=== PATIENT | female | born 1965 | race African-American/Black ===

== ENCOUNTER 2017-06-20 07:48 | Emergency (ER) | payer SELFPAY ==
[2017-06-20 08:28] LABS: BASOPHILS 0.5 % (0-2); EOSINOPHILS 0 % (0-7); HEMATOCRIT 40.8 % (36.0-48.0); HEMOGLOBIN 12.8 g/dL (12-16); IMMATURE GRANULOCYTES 0.3 % (0-5); MCH 27.5 pg (26.0-34.0); MCHC 31.4 g/dL (31.0-37.0); MCV 87.6 fL (80.0-100.0); MEAN PLATELET VOLUME 9.2 fL (7.4-10.4); NEUTROPHILS 58.2 % (40-80); PLATELET COUNT 388 10x3/uL (130-400); RBC 4.66 10x6/uL (4.00-5.40); RDW 18.7 % (11.5-14.5)
[2017-06-20 08:48] LABS: ALBUMIN 3.5 g/dL (3.4-5.0); BILIRUBIN - TOTAL 0.22 mg/dL (0.2-1.3); CALCIUM 9.1 mg/dL (8.5-10.1); CARBON DIOXIDE 26.7 mmol/L (21.0-32.0); CREATININE - SERUM 0.9 mg/dL (0.6-1.3); POTASSIUM - SERUM 3.7 mmol/L (3.5-5.1); PROTEIN - SERUM 8.1 g/dL (6.4-8.2)
[2017-06-20 10:02] LABS: HCG URINE NEGATIVE (NEGATIVE)
[2017-06-20 10:06] LABS: APPEARANCE CLEAR (CLEAR); BILIRUBIN NEGATIVE (NEGATIVE); COLOR YELLOW (YELLOW); GLUCOSE NEGATIVE (NEGATIVE); KETONE NEGATIVE (NEGATIVE); NITRITE NEGATIVE (NEGATIVE); PROTEIN 3+ mg/dL (NEGATIVE); SPECIFIC GRAVITY 1.015 (1.005-1.020); UROBILINOGEN NORMAL (NORMAL)
[2017-06-20 10:11] LABS: RED CELLS - URINE 0-5 /hpf (0-5); WHITE CELLS - URINE 0-5 /hpf (0-5)
[2017-06-20 10:12] LABS: BACTERIA FEW /hpf (NONE SEEN); EPITHELIAL CELLS OCC /hpf (0-5)
[2017-06-20 10:14] LABS: HYALINE CAST RARE /lpf (NONE SEEN); MUCUS >1+ /lpf (NONE SEEN)
[2017-06-26 14:06] VITALS: BMI 32.9
== END 2017-06-20 12:07 | disposition home or self-care (01) ==
LOC: D.ER 07:48
PROVIDERS: Family Medicine
DX: K65.4 Sclerosing mesenteritis (principal); E27.9 Disorder of adrenal gland, unspecified

== ENCOUNTER 2017-06-21 17:53 | Emergency (ER) | payer SELFPAY ==
--- NOTE | ~2017-06-21 | CN ---
PATIENT NAME:PRITI LINDA MEDICAL RECORD: [id number] : 69 LOCATION:.ER ADMIT DATE: ACCOUNT: [id number] CONSULTING PHYSICIAN: SONJA STRICKLAND MD REFERRING PHYSICIAN: DANIELLE MATTHEWS MD DATE OF CONSULTATION: 06/21/2017 CHIEF COMPLAINT: Pain. HISTORY OF PRESENT ILLNESS: The patient is having epigastric pain. Nausea, vomiting, and bloating. I have personally reviewed the CT images. She has a swirl sign as well as some "dirty mesenteric fat." This is entirely consistent with a mesenteric panniculitis. The etiologies for mesenteric panniculitis can include, but are not limited to, an infectious diseases, rheumatologic diseases such as autoimmune problems, it can represent paraneoplastic syndrome; trauma, which the patient denies; or idiopathic reasons. It pretty rare condition. 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 Surgery is rarely indicated. The patient does have some lymph nodes in the mesentery, some greater than 1 cm in size. The treatment is controversial. It usually include steroids. It can include other medication as well such as azathioprine, colchicine, and tamoxifen. Palpation aggravates. Nothing alleviates. Symptoms are constant and mild to moderate in severity. This is a consultation note addendum. For the typed portion of the consult note, please see the chart. This would include the past medical and surgical history, current medications, allergies, social history as well as family history. REVIEW OF SYSTEMS: As described above. No fever, no chills, no significant recent weight loss. No cough. The review of systems is negative other than as is described above. PHYSICAL EXAMINATION: GENERAL: The patient does not appear acutely ill. She does not appear chronically ill. The entire physical examination was performed in the presence of a female nurse. VITAL SIGNS: Reviewed. EARS: External ears appear normal. EYES: Extraocular movements are intact. NECK: Trachea is midline. CHEST: No intercostal retractions. PULMONARY: Nonlabored, no stridor. ABDOMEN: Tenderness in the epigastrium. I note no mass. There is no peritonitis to percussion. EXTREMITIES: No peripheral cyanosis. INTEGUMENT: No rash, no ulcerations. PSYCHIATRIC: Normal affect. NEUROLOGIC: Nonfocal, no lethargy. The patient answers questions appropriately, moves all extremities well. BACK: No thoracic kyphosis. LYMPHATIC: No lymphangitic streaking of the exposed extremities. IMPRESSION: Mesentery panniculitis. PLAN: ID workup. Oncology workup. Rheumatology consultation. Once the CONSULT REPORT [id number] PRITI LINDA rheumatology consultation has started, I would like to start the patient on steroids. I do not want to start the patient on steroids prior to the rheumatology consultation as this could lead to a false negative result. TRANSINT:[id number] Voice Confirmation ID: [id number] DOCUMENT ID: [id number] SONJA STRICKLAND MD at 0938 CC: [id number] DICTATION DATE: 06/26/17 1057 [employer]ER: 06/26/17 1447 DEP ER 06/21/[address] [address]
[2017-06-21 20:12] LABS: BASOPHILS 0.3 % (0-2); EOSINOPHILS 0 % (0-7); HEMATOCRIT 41.8 % (36.0-48.0); HEMOGLOBIN 13.3 g/dL (12-16); IMMATURE GRANULOCYTES 0.3 % (0-5); LYMPHOCYTES 29.1 % (15-50); MCH 27.7 pg (26.0-34.0); MCHC 31.8 g/dL (31.0-37.0); MCV 87.1 fL (80.0-100.0); MEAN PLATELET VOLUME 9.4 fL (7.4-10.4); MONOCYTES 9.1 % (2-11); NEUTROPHILS 61.2 % (40-80); PLATELET COUNT 388 10x3/uL (130-400); RDW 18.4 % (11.5-14.5); WBC 3.9 10x3/uL (4.8-10.8)
[2017-06-21 20:28] LABS: ALBUMIN 3.7 g/dL (3.4-5.0); ANION GAP 14.8 mmol/L (8-16); BILIRUBIN - TOTAL 0.4 mg/dL (0.2-1.3); CALCIUM 8.9 mg/dL (8.5-10.1); CARBON DIOXIDE 26.5 mmol/L (21.0-32.0); CREATININE - SERUM 1.1 mg/dL (0.6-1.3); POTASSIUM - SERUM 3.3 mmol/L (3.5-5.1); PROTEIN - SERUM 8.3 g/dL (6.4-8.2)
[2017-06-26 14:06] VITALS: BMI 32.9
== END 2017-06-21 23:47 | disposition home or self-care (01) ==
LOC: D.ER 17:53
PROVIDERS: Emergency Medicine
DX: R10.13 Epigastric pain (principal); E87.6 Hypokalemia; K29.00 Acute gastritis without bleeding

== ENCOUNTER 2017-06-23 01:51 | Inpatient (IN) | payer SELFPAY ==
[~2017-06-23] VITALS: Ht 157.5 cm; Wt 81.6 kg
--- NOTE | ~2017-06-23 | PN ---
PATIENT:PRITI LINDA MEDICAL RECORD: [id number] LOCATION:[facility] ADMISSION DATE: 06/24/17 PROGRESS NOTE DATE OF SERVICE: 06/27/2017 CHIEF COMPLAINT: Better. The patient is having less nausea. No vomiting. Less abdominal pain. It does not appear that a rheumatologic consultation is forthcoming. I have discussed this with Dr. Cast. He is going to order some rheumatology markers and hopefully we can start the patient on steroids. Nothing aggravates. Nothing alleviates. She is neutropenic. This is a progress note addendum. For the typed portion of the progress note, please see the chart. This would include the past medical and surgical history, current medications, allergies, social history as well as family history. REVIEW OF SYSTEMS: No fever, no chills, no tachycardia. Less abdominal pain. The review of systems is negative other than as is described above. PHYSICAL EXAMINATION: GENERAL: The patient does not appear acutely ill. She does not appear chronically ill. The entire physical examination was performed in the presence of a female nurse. VITAL SIGNS: Reviewed. EARS: External ears appear normal. EYES: Extraocular movements are intact. NECK: Trachea is midline. CHEST: No intercostal retractions. PULMONARY: Nonlabored, no stridor. ABDOMEN: No peritonitis with movement. EXTREMITIES: No peripheral cyanosis. INTEGUMENT: No rash, no ulcerations. PSYCHIATRIC: Normal affect. NEUROLOGIC: Nonfocal, no lethargy. BACK: No thoracic kyphosis. LYMPHATIC: No lymphangitic streaking of the exposed extremities. IMPRESSION: Mesenteric panniculitis. PLAN: As described above. TRANSINT:[id number] Voice Confirmation ID: [id number] DOCUMENT ID: [id number] PROGRESS NOTE [id number] RPITI LINDA ROBERT MD at 0938 CC: [id number] DICTATION DATE: 06/27/17 1017 ROTARY DRILLER HELPER: 06/27/17 1633 ADM IN [address] [id number] [place] [address]
[2017-06-23 02:15] LABS: BASOPHILS 0.8 % (0-2); EOSINOPHILS 0.4 % (0-7); HEMATOCRIT 42.4 % (36.0-48.0); HEMOGLOBIN 13.1 g/dL (12-16); LYMPHOCYTES 49.6 % (15-50); MCH 27.2 pg (26.0-34.0); MCHC 30.9 g/dL (31.0-37.0); NEUTROPHILS 36.2 % (40-80); PLATELET COUNT 344 10x3/uL (130-400); RBC 4.82 10x6/uL (4.00-5.40); RDW 18.2 % (11.5-14.5); WBC 2.6 10x3/uL (4.8-10.8)
[2017-06-23 02:29] LABS: ALBUMIN 3.4 g/dL (3.4-5.0); BILIRUBIN - TOTAL 0.52 mg/dL (0.2-1.3); CALCIUM 8.9 mg/dL (8.5-10.1); CARBON DIOXIDE 27.6 mmol/L (21.0-32.0); CREATININE - SERUM 0.9 mg/dL (0.6-1.3); PROTEIN - SERUM 7.8 g/dL (6.4-8.2)
[2017-06-23 02:31] LABS: ANION GAP 9.3 mmol/L (8-16); POTASSIUM - SERUM 3.9 mmol/L (3.5-5.1)
[2017-06-23 02:58] LABS: APPEARANCE CLOUDY (CLEAR); COLOR RED (YELLOW)
[2017-06-23 02:59] LABS: BACTERIA NONE SEEN /hpf (NONE SEEN); BILIRUBIN NEGATIVE (NEGATIVE); EPITHELIAL CELLS RARE /hpf (0-5); GLUCOSE NEGATIVE (NEGATIVE); KETONE SMALL mg/dL (NEGATIVE); NITRITE NEGATIVE (NEGATIVE); PROTEIN 1+ mg/dL (NEGATIVE); RED CELLS - URINE >50 /hpf (0-5); UROBILINOGEN NORMAL (NORMAL); WHITE CELLS - URINE RARE /hpf (0-5)
[2017-06-23 03:04] LABS: UDS - AMPHET NEGATIVE QUAL (NEGATIVE); UDS - BARB NEGATIVE QUAL (NEGATIVE); UDS - BENZO NEGATIVE QUAL (NEGATIVE); UDS - COCAINE NEGATIVE QUAL (NEGATIVE); UDS - OPIATE POSITIVE QUAL (NEGATIVE); UDS - PCP NEGATIVE QUAL (NEGATIVE); UDS - THC POSITIVE QUAL (NEGATIVE)
[2017-06-23 13:25] VITALS: BP 152/92; BMI 33.0
[2017-06-23 16:30] VITALS: BP 148/102
[2017-06-23 20:00] VITALS: BP 150/101
[2017-06-24] VITALS: BP 153/87
[2017-06-24 04:00] VITALS: BP 153/91
[2017-06-24 04:56] LABS: BASOPHILS 0.4 % (0-2); EOSINOPHILS 0.7 % (0-7); HEMATOCRIT 38.4 % (36.0-48.0); HEMOGLOBIN 11.9 g/dL (12-16); LYMPHOCYTES 64.8 % (15-50); MCH 27.1 pg (26.0-34.0); MCV 87.5 fL (80.0-100.0); MEAN PLATELET VOLUME 9.5 fL (7.4-10.4); MONOCYTES 13.9 % (2-11); NEUTROPHILS 20.2 % (40-80); PLATELET COUNT 324 10x3/uL (130-400); RBC 4.39 10x6/uL (4.00-5.40); RDW 18.3 % (11.5-14.5); WBC 2.7 10x3/uL (4.8-10.8)
[2017-06-24 05:11] LABS: ALKALINE PHOSPHATASE 75 U/L (46-116); ALT (SGPT) 80 U/L (10-68); CALC OSMOLALITY 273 mosm/kg (275-300); CALCIUM 8.6 mg/dL (8.5-10.1); CARBON DIOXIDE 27.2 mmol/L (21.0-32.0); CHLORIDE - SERUM 103 mmol/L (98-107); CREATININE - SERUM 0.8 mg/dL (0.6-1.3); GLUCOSE 94 mg/dL (74-106); POTASSIUM - SERUM 3.7 mmol/L (3.5-5.1); PROTEIN - SERUM 6.7 g/dL (6.4-8.2); SODIUM 138 mmol/L (136-145); UREA NITROGEN 6 mg/dL (7-18); eGFR NON AFRICAN AMERICAN 80 mL/min (90-120)
[2017-06-24 09:56] VITALS: BP 153/95
[2017-06-24 12:38] VITALS: BP 170/96
[2017-06-24 14:13] VITALS: BMI 32.9
[2017-06-24 16:45] VITALS: BP 146/95
[2017-06-24 20:00] VITALS: BP 178/108
[2017-06-25] VITALS: BP 142/80
[2017-06-25 04:00] VITALS: BP 112/99
[2017-06-25 06:20] LABS: BASOPHILS 0.3 % (0-2); EOSINOPHILS 0.3 % (0-7); HEMATOCRIT 39.9 % (36.0-48.0); HEMOGLOBIN 12.7 g/dL (12-16); IMMATURE GRANULOCYTES 0.5 % (0-5); MCH 27.3 pg (26.0-34.0); MCHC 31.8 g/dL (31.0-37.0); MCV 85.6 fL (80.0-100.0); MEAN PLATELET VOLUME 9.9 fL (7.4-10.4); NEUTROPHILS 44.9 % (40-80); PLATELET COUNT 358 10x3/uL (130-400); RBC 4.66 10x6/uL (4.00-5.40); RDW 18.2 % (11.5-14.5)
[2017-06-25 06:23] LABS: WBC 3.7 10x3/uL (4.8-10.8)
[2017-06-25 06:54] LABS: ALBUMIN 3.2 g/dL (3.4-5.0); ALKALINE PHOSPHATASE 81 U/L (46-116); ALT (SGPT) 88 U/L (10-68); BILIRUBIN - TOTAL 0.39 mg/dL (0.2-1.3); CALC OSMOLALITY 270 mosm/kg (275-300); CARBON DIOXIDE 23.8 mmol/L (21.0-32.0); CHLORIDE - SERUM 101 mmol/L (98-107); GLUCOSE 106 mg/dL (74-106); SODIUM 137 mmol/L (136-145); UREA NITROGEN 5 mg/dL (7-18); eGFR NON AFRICAN AMERICAN > 90 mL/min (90-120)
[2017-06-25 07:05] LABS: CREATININE - SERUM 0.5 mg/dL (0.6-1.3); POTASSIUM - SERUM 4.9 mmol/L (3.5-5.1)
[2017-06-25 08:44] VITALS: BP 100/47; BP 146/81
[2017-06-25 16:36] VITALS: BP 153/91
[2017-06-25 20:00] VITALS: BP 175/102
[2017-06-26] VITALS: BP 155/96
[2017-06-26 06:00] VITALS: BP 145/99
[2017-06-26 08:04] VITALS: BP 141/86
[2017-06-26 11:56] LABS: BASOPHILS 0.3 % (0-2); EOSINOPHILS 0.9 % (0-7); HEMATOCRIT 40.7 % (36.0-48.0); IMMATURE GRANULOCYTES 0.3 % (0-5); LYMPHOCYTES 37.6 % (15-50); MCH 27.8 pg (26.0-34.0); MCHC 31.9 g/dL (31.0-37.0); MCV 87.2 fL (80.0-100.0); MEAN PLATELET VOLUME 9.3 fL (7.4-10.4); NEUTROPHILS 46.9 % (40-80); PLATELET COUNT 356 10x3/uL (130-400); RBC 4.67 10x6/uL (4.00-5.40); RDW 18.2 % (11.5-14.5); WBC 3.5 10x3/uL (4.8-10.8)
[2017-06-26 12:07] VITALS: BP 161/94
[2017-06-26 12:15] LABS: MONO NEGATIVE (NEGATIVE)
[2017-06-26 12:23] LABS: ALBUMIN 3.3 g/dL (3.4-5.0); ALKALINE PHOSPHATASE 77 U/L (46-116); ALT (SGPT) 83 U/L (10-68); BILIRUBIN - TOTAL 0.37 mg/dL (0.2-1.3); CALC OSMOLALITY 270 mosm/kg (275-300); CALCIUM 8.6 mg/dL (8.5-10.1); CARBON DIOXIDE 26.4 mmol/L (21.0-32.0); CHLORIDE - SERUM 101 mmol/L (98-107); GLUCOSE 111 mg/dL (74-106); PROTEIN - SERUM 6.9 g/dL (6.4-8.2); SODIUM 136 mmol/L (136-145); UREA NITROGEN 6 mg/dL (7-18)
[2017-06-26 12:33] LABS: CREATININE - SERUM 0.7 mg/dL (0.6-1.3); POTASSIUM - SERUM 4.1 mmol/L (3.5-5.1); eGFR NON AFRICAN AMERICAN > 90 mL/min (90-120)
[2017-06-26 12:38] LABS: C-REACTIVE PROTEIN < 0.2 mg/dL (0.0-0.9)
[2017-06-26 13:06] LABS: ERYTHROCYTE SEDIMENTATION RATE 10 mm/hr (0-30)
[2017-06-26 14:06] VITALS: Ht 157.5 cm; Wt 81.6 kg
[2017-06-26 22:05] VITALS: BP 152/91
[2017-06-27 01:44] VITALS: BP 156/99
[2017-06-27 04:00] VITALS: BP 143/84
[2017-06-27 04:39] LABS: INR 1.1 (0.85-1.17); PROTIME 13.8 SECONDS (11.6-15.0)
[2017-06-27 04:40] LABS: BASOPHILS 0.3 % (0-2); EOSINOPHILS 1.8 % (0-7); HEMATOCRIT 39.8 % (36.0-48.0); HEMOGLOBIN 12.5 g/dL (12-16); LYMPHOCYTES 44.6 % (15-50); MCH 27.2 pg (26.0-34.0); MCHC 31.4 g/dL (31.0-37.0); MCV 86.7 fL (80.0-100.0); MEAN PLATELET VOLUME 9.6 fL (7.4-10.4); MONOCYTES 14.4 % (2-11); NEUTROPHILS 38.9 % (40-80); PLATELET COUNT 377 10x3/uL (130-400); RBC 4.59 10x6/uL (4.00-5.40); RDW 18.2 % (11.5-14.5); WBC 3.3 10x3/uL (4.8-10.8)
[2017-06-27 04:51] LABS: ALKALINE PHOSPHATASE 68 U/L (46-116); ALT (SGPT) 75 U/L (10-68); BILIRUBIN - TOTAL 0.37 mg/dL (0.2-1.3); CALC OSMOLALITY 269 mosm/kg (275-300); CALCIUM 8.8 mg/dL (8.5-10.1); CARBON DIOXIDE 26.4 mmol/L (21.0-32.0); CHLORIDE - SERUM 101 mmol/L (98-107); CREATININE - SERUM 0.8 mg/dL (0.6-1.3); GLUCOSE 102 mg/dL (74-106); POTASSIUM - SERUM 3.9 mmol/L (3.5-5.1); PROTEIN - SERUM 6.8 g/dL (6.4-8.2); SODIUM 136 mmol/L (136-145); UREA NITROGEN 6 mg/dL (7-18); eGFR NON AFRICAN AMERICAN 80 mL/min (90-120)
[2017-06-27 07:26] LABS: RAPID PLASMA REAGIN Non Reactive (Non Reactive)
[2017-06-27 08:35] VITALS: BP 167/102
[2017-06-27 10:16] LABS: ANA REFLEX - DIRECT Negative (Negative)
[2017-06-27 12:13] LABS: HEPATITIS C ANTIBODY 0.2 (0.0-0.9)
[2017-06-27 12:30] VITALS: BP 161/94
[2017-06-27 16:45] VITALS: BP 170/117
[2017-06-27 18:09] LABS: CYTOMEGALOVIRUS AB IGG >10.00 U/mL (0.00-0.59); EBV - EARLY ANTIGEN AB IGG <9.0 U/mL (0.0-8.9); EBV VIRAL CAPSID AB IGG >600.0 U/mL (0.0-17.9); EBV VIRAL CAPSID AB IGM <36.0 U/mL (0.0-35.9)
[2017-06-27 20:08] LABS: EBV - EARLY ANTIGEN AB IGG 11.8 U/mL (0.0-8.9); EBV VIRAL CAPSID AB IGG >600.0 U/mL (0.0-17.9); EBV VIRAL CAPSID AB IGM <36.0 U/mL (0.0-35.9)
[2017-06-27 22:07] VITALS: BP 167/90
[2017-06-28 02:03] VITALS: BP 138/92
[2017-06-28 04:56] LABS: HEMATOCRIT 38.8 % (36.0-48.0); HEMOGLOBIN 12.5 g/dL (12-16); LYMPHOCYTES 45.3 % (15-50); MCH 27.7 pg (26.0-34.0); MCHC 32.2 g/dL (31.0-37.0); MEAN PLATELET VOLUME 9.2 fL (7.4-10.4); NEUTROPHILS 41.9 % (40-80); PLATELET COUNT 348 10x3/uL (130-400); RBC 4.51 10x6/uL (4.00-5.40); RDW 18.3 % (11.5-14.5); WBC 3.5 10x3/uL (4.8-10.8)
[2017-06-28 05:14] LABS: CA 19-9 1 U/mL (0-35); CEA 1.6 ng/mL (0.0-4.7)
[2017-06-28 05:15] LABS: ALBUMIN 3.2 g/dL (3.4-5.0); ALKALINE PHOSPHATASE 67 U/L (46-116); ALT (SGPT) 65 U/L (10-68); BILIRUBIN - TOTAL 0.33 mg/dL (0.2-1.3); CALC OSMOLALITY 272 mosm/kg (275-300); CALCIUM 8.9 mg/dL (8.5-10.1); CARBON DIOXIDE 27.7 mmol/L (21.0-32.0); CHLORIDE - SERUM 103 mmol/L (98-107); CREATININE - SERUM 0.7 mg/dL (0.6-1.3); GLUCOSE 97 mg/dL (74-106); POTASSIUM - SERUM 3.9 mmol/L (3.5-5.1); PROTEIN - SERUM 6.8 g/dL (6.4-8.2); SODIUM 138 mmol/L (136-145); UREA NITROGEN 5 mg/dL (7-18); eGFR NON AFRICAN AMERICAN > 90 mL/min (90-120)
[2017-06-28 05:50] VITALS: BP 144/78
[2017-06-28 06:12] LABS: BETA-2 MICROGLOBULIN 1.5 mg/L (0.6-2.4)
[2017-06-28 08:04] VITALS: BP 145/91
[2017-06-28 15:45] VITALS: BP 141/94
[2017-06-28 20:00] VITALS: BP 145/84
[2017-06-29] VITALS: BP 120/79
[2017-06-29 04:00] VITALS: BP 118/77
[2017-06-29 04:22] LABS: BASOPHILS 0.6 % (0-2); EOSINOPHILS 1.5 % (0-7); HEMOGLOBIN 12.9 g/dL (12-16); IMMATURE GRANULOCYTES 0.3 % (0-5); LYMPHOCYTES 40.1 % (15-50); MCH 27.5 pg (26.0-34.0); MCHC 31.5 g/dL (31.0-37.0); MCV 87.4 fL (80.0-100.0); MEAN PLATELET VOLUME 9.7 fL (7.4-10.4); NEUTROPHILS 38.5 % (40-80); PLATELET COUNT 362 10x3/uL (130-400); RBC 4.69 10x6/uL (4.00-5.40); RDW 18.5 % (11.5-14.5); WBC 3.4 10x3/uL (4.8-10.8)
[2017-06-29 04:43] LABS: ALBUMIN 3.2 g/dL (3.4-5.0); ALKALINE PHOSPHATASE 69 U/L (46-116); ALT (SGPT) 60 U/L (10-68); BILIRUBIN - TOTAL 0.26 mg/dL (0.2-1.3); CALC OSMOLALITY 277 mosm/kg (275-300); CALCIUM 8.9 mg/dL (8.5-10.1); CHLORIDE - SERUM 105 mmol/L (98-107); CREATININE - SERUM 0.8 mg/dL (0.6-1.3); GLUCOSE 100 mg/dL (74-106); POTASSIUM - SERUM 3.5 mmol/L (3.5-5.1); PROTEIN - SERUM 6.9 g/dL (6.4-8.2); SODIUM 141 mmol/L (136-145); UREA NITROGEN 5 mg/dL (7-18); eGFR NON AFRICAN AMERICAN 80 mL/min (90-120)
[2017-06-29 07:48] VITALS: BP 131/75
[2017-06-29] MEDS ORDERED: REGLAN10 MG PO (12:07)
[2017-06-29] MEDS ORDERED: MIRALAX17 GM PO (12:07)
[2017-06-29] MEDS ORDERED: CARAFATE1 G PO (12:07)
[2017-06-29] MEDS ORDERED: PEPCID40 MG PO (12:08)
[2017-06-29] MEDS ORDERED: PROTONIX40 MG PO (12:08)
[2017-06-29 12:19] VITALS: BP 103/82
[2017-06-30 15:23] LABS: EHRLICHIA CHAFF IGG Negative (Neg:<1:64); EHRLICHIA CHAFF IGM Negative (Neg:<1:20); HGE IGG TITER Negative (Neg:<1:64); HGE IGM TITER Negative (Neg:<1:20)
== END 2017-06-29 13:58 | disposition home or self-care (01) | DRG 393 ==
LOC: D.ER 01:51 → D.MS 12:45 → OBSVTIME 12:45 → D.MS 12:45
PROVIDERS: Emergency Medicine; Family Medicine; Internal Medicine Gastroenterology; Internal Medicine Hematology & Oncology; Internal Medicine Nephrology; Student in an Organized Health Care Education/Training Program
PROC: 0DB68ZX Excision of Stomach, Via Natural or Artificial Opening Endoscopic, Diagnostic (ICD-10-PCS; 2017-06-28)
PROC: 0DB58ZX Excision of Esophagus, Via Natural or Artificial Opening Endoscopic, Diagnostic (ICD-10-PCS; 2017-06-28)
PROC: 0DB98ZX Excision of Duodenum, Via Natural or Artificial Opening Endoscopic, Diagnostic (ICD-10-PCS; principal; 2017-06-28 10:00)
DX: K65.4 Sclerosing mesenteritis (principal); K25.4 Chronic or unspecified gastric ulcer with hemorrhage; K22.10 Ulcer of esophagus without bleeding; R74.0 Nonspecific elevation of levels of transaminase and lactic acid dehydrogenase [LDH]; D72.819 Decreased white blood cell count, unspecified; D70.9 Neutropenia, unspecified; K29.80 Duodenitis without bleeding; K26.9 Duodenal ulcer, unspecified as acute or chronic, without hemorrhage or perforation

== ENCOUNTER 2020-01-07 10:23 | Emergency (ER) | payer SELFPAY ==
[~2020-01-07] VITALS: Ht 157.5 cm; Wt 90.0 kg
[~2020-01-07 10:23] MED LIST: CARAFATE1 G PO; MIRALAX17 GM PO; PEPCID40 MG PO; PROTONIX40 MG PO; REGLAN10 MG PO
[2020-01-07 10:32] VITALS: Ht 157.5 cm; Wt 90.0 kg
[2020-01-07 11:05] LABS: BASOPHILS 0.4 % (0-2); HEMATOCRIT 43.1 % (36.0-48.0); HEMOGLOBIN 13.8 g/dL (12-16); IMMATURE GRANULOCYTES 0.6 % (0-5); LYMPHOCYTES 25.2 % (15-50); MCH 30.1 pg (26.0-34.0); MCV 94.1 fL (80.0-100.0); MEAN PLATELET VOLUME 9.2 fL (7.4-10.4); MONOCYTES 5.1 % (2-11); NEUTROPHILS 65.7 % (40-80); PLATELET COUNT 315 10x3/uL (130-400); RBC 4.58 10x6/uL (4.00-5.40); RDW 14.6 % (11.5-14.5); WBC 4.7 10x3/uL (4.8-10.8)
[2020-01-07 11:26] LABS: CALC OSMOLALITY 273 mosm/kg (275-300); CALCIUM 9.2 mg/dL (8.5-10.1); CHLORIDE - SERUM 103 mmol/L (98-107); CREATININE - SERUM 0.8 mg/dL (0.6-1.3); GLUCOSE 120 mg/dL (74-106); POTASSIUM - SERUM 4.1 mmol/L (3.5-5.1); SODIUM 137 mmol/L (136-145); UREA NITROGEN 11 mg/dL (7-18); eGFR NON AFRICAN AMERICAN 80 mL/min (90-120)
[2020-01-07 11:35] LABS: ALBUMIN 3.7 g/dL (3.4-5.0); ALKALINE PHOSPHATASE 78 U/L (30-120); ALT (SGPT) 32 U/L (10-68); AMYLASE - SERUM 155 U/L (25-115); BILIRUBIN - TOTAL 0.18 mg/dL (0.2-1.3); LIPASE 82 U/L (73-393); PROTEIN - SERUM 7.8 g/dL (6.4-8.2); TROPONIN-I < 0.017 ng/mL (0.000-0.060)
[2020-01-07 11:48] LABS: BILIRUBIN NEGATIVE (NEGATIVE); GLUCOSE NEGATIVE (NEGATIVE); KETONE NEGATIVE (NEGATIVE); NITRITE NEGATIVE (NEGATIVE); SPECIFIC GRAVITY 1.005 (1.005-1.020); UROBILINOGEN NORMAL (NORMAL)
[2020-01-07] MEDS ORDERED: CARAFATE1 G PO (13:19)
[2020-01-07] MEDS ORDERED: PEPCID40 MG PO (13:19)
[2020-01-07] MEDS ORDERED: PROTONIX40 MG PO (13:19)
[2020-01-07] MEDS ORDERED: LISINOPRIL-HCT1 EAC8 PO (13:39)
[2020-01-07 14:34] VITALS: BP 178/93
== END 2020-01-07 14:36 | disposition home or self-care (01) ==
LOC: D.ER 10:23
PROVIDERS: Family Medicine
DX: R10.9 Unspecified abdominal pain (principal); K29.70 Gastritis, unspecified, without bleeding; I10 Essential (primary) hypertension; K21.9 Gastro-esophageal reflux disease without esophagitis; R11.2 Nausea with vomiting, unspecified

== ENCOUNTER 2020-02-04 18:07 | Emergency (ER) | payer SELFPAY ==
[~2020-02-04] VITALS: Ht 157.5 cm; Wt 93.6 kg
[~2020-02-04 18:07] MED LIST changes: +LISINOPRIL-HCT1 EAC8 PO
[2020-02-04 18:25] VITALS: Ht 157.5 cm; Wt 93.6 kg
[2020-02-04 19:14] LABS: BASOPHILS 0.1 % (0-2); EOSINOPHILS 0 % (0-7); HEMATOCRIT 42.7 % (36.0-48.0); HEMOGLOBIN 14.4 g/dL (12-16); IMMATURE GRANULOCYTES 0.3 % (0-5); MCH 30.3 pg (26.0-34.0); MCHC 33.7 g/dL (31.0-37.0); MCV 89.9 fL (80.0-100.0); MEAN PLATELET VOLUME 9.7 fL (7.4-10.4); MONOCYTES 8.6 % (2-11); RBC 4.75 10x6/uL (4.00-5.40); RDW 14.2 % (11.5-14.5); WBC 7.9 10x3/uL (4.8-10.8)
[2020-02-04 19:16] LABS: PLATELET COUNT 412 10x3/uL (130-400)
[2020-02-04 19:18] LABS: BILIRUBIN NEGATIVE (NEGATIVE); KETONE SMALL mg/dL (NEGATIVE); NITRITE POSITIVE (NEGATIVE); UROBILINOGEN NORMAL (NORMAL)
[2020-02-04 19:19] LABS: AMORPHOUS SEDIMENT >1+ /lpf (NONE SEEN); BACTERIA MODERATE /hpf (NEGATIVE); EPITHELIAL CELLS 0-5 /hpf (0-5); RED CELLS - URINE 0-5 /hpf (0-5); WHITE CELLS - URINE 0-5 /hpf (NEGATIVE)
[2020-02-04 20:10] LABS: CALC OSMOLALITY 274 mosm/kg (275-300); CALCIUM 10.2 mg/dL (8.5-10.1); CARBON DIOXIDE 23.8 mmol/L (21.0-32.0); CHLORIDE - SERUM 98 mmol/L (98-107); GLUCOSE 136 mg/dL (74-106); POTASSIUM - SERUM 3.6 mmol/L (3.5-5.1); SODIUM 136 mmol/L (136-145); UREA NITROGEN 14 mg/dL (7-18); eGFR NON AFRICAN AMERICAN 61 mL/min (90-120)
[2020-02-04 20:18] LABS: ALBUMIN 4.4 g/dL (3.4-5.0); ALKALINE PHOSPHATASE 84 U/L (30-120); ALT (SGPT) 36 U/L (10-68); AMYLASE - SERUM 194 U/L (25-115); LIPASE 56 U/L (73-393); PROTEIN - SERUM 8.9 g/dL (6.4-8.2); TROPONIN-I < 0.017 ng/mL (0.000-0.060)
[2020-02-04] MEDS ORDERED: PROTONIX40 MG PO (21:35)
[2020-02-04 21:51] VITALS: BP 168/114
== END 2020-02-04 21:57 | disposition home or self-care (01) ==
LOC: D.ER 18:07
DX: R10.9 Unspecified abdominal pain (principal); K29.70 Gastritis, unspecified, without bleeding; R11.10 Vomiting, unspecified

== ENCOUNTER 2020-03-14 12:22 | Emergency (ER) | payer SELFPAY ==
[2020-03-14 12:31] VITALS: Ht 157.5 cm
[2020-03-14 12:59] LABS: BASOPHILS 0.2 % (0-2); EOSINOPHILS 0.8 % (0-7); HEMATOCRIT 42.9 % (36.0-48.0); HEMOGLOBIN 13.9 g/dL (12-16); IMMATURE GRANULOCYTES 0.6 % (0-5); MCH 30.3 pg (26.0-34.0); MCHC 32.4 g/dL (31.0-37.0); MCV 93.7 fL (80.0-100.0); MEAN PLATELET VOLUME 9.5 fL (7.4-10.4); MONOCYTES 5.3 % (2-11); NEUTROPHILS 73.1 % (40-80); PLATELET COUNT 332 10x3/uL (130-400); RBC 4.58 10x6/uL (4.00-5.40); RDW 14.2 % (11.5-14.5); WBC 5.1 10x3/uL (4.8-10.8)
[2020-03-14 13:14] LABS: CALC OSMOLALITY 274 mosm/kg (275-300); CALCIUM 9.4 mg/dL (8.5-10.1); CARBON DIOXIDE 26.8 mmol/L (21.0-32.0); CHLORIDE - SERUM 104 mmol/L (98-107); CREATININE - SERUM 0.8 mg/dL (0.6-1.3); GLUCOSE 103 mg/dL (74-106); POTASSIUM - SERUM 3.9 mmol/L (3.5-5.1); SODIUM 138 mmol/L (136-145); UREA NITROGEN 10 mg/dL (7-18); eGFR NON AFRICAN AMERICAN 79 mL/min (90-120)
[2020-03-14 13:19] LABS: ALBUMIN 3.8 g/dL (3.4-5.0); ALKALINE PHOSPHATASE 87 U/L (30-120); ALT (SGPT) 22 U/L (10-68); AMYLASE - SERUM 103 U/L (25-115); BILIRUBIN - TOTAL 0.24 mg/dL (0.2-1.3); LIPASE 60 U/L (73-393); PROTEIN - SERUM 7.7 g/dL (6.4-8.2)
[2020-03-14 15:35] LABS: BILIRUBIN NEGATIVE (NEGATIVE); KETONE NEGATIVE (NEGATIVE); NITRITE NEGATIVE (NEGATIVE); UROBILINOGEN NORMAL mg/dL (< 2)
[2020-03-14 15:36] LABS: HCG URINE NEGATIVE (NEGATIVE)
[2020-03-14] MEDS ORDERED: PHENERGAN25 M1 PO (17:52)
[2020-03-14] MEDS ORDERED: ULTRAM50 MG PO (17:52)
[2020-03-14 18:35] VITALS: BP 165/92
== END 2020-03-14 18:39 | disposition home or self-care (01) ==
LOC: D.ER 12:22
PROVIDERS: Family Medicine
DX: R10.9 Unspecified abdominal pain (principal); K82.9 Disease of gallbladder, unspecified

== ENCOUNTER 2020-09-17 08:48 | Emergency (ER) | payer BC ==
[~2020-09-17] VITALS: Ht 157.5 cm; Wt 84.5 kg
[~2020-09-17 08:48] MED LIST changes: +ACETAMINOPHEN500 M1 PO; +BACTRIM DS TAB1 EAC1 PO; +COLACE100 MG PO; +CYCLOBENZAPRINE10 MG PO; +HYDROCODON-ACE1 EAC7 PO; +IBUPROFEN800 MG PO; +LEVSIN/ANASP0.125 MG PO; +MACROBID100 MG PO; +MACRODANTIN100 MG PO; +PHENERGAN25 M1 PO; +ULTRAM50 MG PO; +VOLTAREN75 MG PO; +ZOFRAN ODT4 MG/UDTAB PO; +ZOFRAN4 MG PO
[2020-09-17 08:55] VITALS: Ht 157.5 cm; Wt 84.5 kg
[2020-09-17] MEDS ORDERED: LISINOPRIL-HCT1 EAC8 PO (09:00)
[2020-09-17] MEDS ORDERED: TRAZODONE HCL50 MG PO (09:01)
[2020-09-17] MEDS ORDERED: OXYBUTYNIN CHLOR5 MG PO (09:01)
[2020-09-17] MEDS ORDERED: FOLBEE PLUS TAB1 TAB PO (09:01)
[2020-09-17] MEDS ORDERED: CYMBALTA60 MG PO (09:02)
[2020-09-17] MEDS ORDERED: LEXAPRO10 MG PO (09:02)
[2020-09-17 09:17] LABS: BASOPHILS 0.4 % (0-2); EOSINOPHILS 1.5 % (0-7); HEMATOCRIT 40.3 % (36.0-48.0); IMMATURE GRANULOCYTES 0.2 % (0-5); LYMPHOCYTE ABS# 1.36 10x3/uL (1.18-3.74); LYMPHOCYTES 24.8 % (15-50); MCH 30.6 pg (26.0-34.0); MCHC 32.3 g/dL (31.0-37.0); MCV 94.8 fL (80.0-100.0); MEAN PLATELET VOLUME 9.4 fL (7.4-10.4); MONOCYTES 5.5 % (2-11); NEUTROPHIL ABS# 3.72 10x3/uL (1.56-6.13); NEUTROPHILS 67.6 % (40-80); PLATELET COUNT 392 10x3/uL (130-400); RBC 4.25 10x6/uL (4.00-5.40); RDW 14.6 % (11.5-14.5); WBC 5.5 10x3/uL (4.8-10.8)
[2020-09-17 09:25] LABS: CALC OSMOLALITY 275 mosm/kg (275-300); CALCIUM 9.1 mg/dL (8.5-10.1); CARBON DIOXIDE 25.8 mmol/L (21.0-32.0); CHLORIDE - SERUM 101 mmol/L (98-107); CREATININE - SERUM 0.9 mg/dL (0.6-1.3); GLUCOSE 112 mg/dL (74-106); POTASSIUM - SERUM 3.7 mmol/L (3.5-5.1); SODIUM 138 mmol/L (136-145); UREA NITROGEN 9 mg/dL (7-18); eGFR NON AFRICAN AMERICAN 69 mL/min (90-120)
[2020-09-17 09:28] LABS: BILIRUBIN NEGATIVE (NEGATIVE); KETONE NEGATIVE (NEGATIVE); NITRITE NEGATIVE (NEGATIVE); UROBILINOGEN NORMAL mg/dL (< 2)
[2020-09-17 09:38] LABS: UDS - AMPHET NEGATIVE QUAL (NEGATIVE); UDS - BARB NEGATIVE QUAL (NEGATIVE); UDS - BENZO NEGATIVE QUAL (NEGATIVE); UDS - COCAINE NEGATIVE QUAL (NEGATIVE); UDS - OPIATE NEGATIVE QUAL (NEGATIVE); UDS - PCP NEGATIVE QUAL (NEGATIVE); UDS - THC POSITIVE QUAL (NEGATIVE)
[2020-09-17 09:43] LABS: ALBUMIN 3.7 g/dL (3.4-5.0); ALKALINE PHOSPHATASE 98 U/L (30-120); ALT (SGPT) 62 U/L (10-68); AMYLASE - SERUM 159 U/L (25-115); BILIRUBIN - TOTAL 0.22 mg/dL (0.2-1.3); CKMB 0.8 U/L (0.0-3.6); CREATINE KINASE 128 UL (21-215); LIPASE 57 U/L (73-393); PROTEIN - SERUM 7.8 g/dL (6.4-8.2)
[2020-09-17 09:44] LABS: TROPONIN-I < 0.017 ng/mL (0.000-0.060)
[2020-09-17 10:34] VITALS: BP 156/98
== END 2020-09-17 10:35 | disposition home or self-care (01) ==
LOC: D.ER 08:48
PROVIDERS: Family Medicine
DX: R10.13 Epigastric pain (principal); G89.29 Other chronic pain; I10 Essential (primary) hypertension

== ENCOUNTER 2020-09-22 08:05 | Emergency (ER) | payer MEDICAID ==
[~2020-09-22] VITALS: Ht 157.5 cm; Wt 81.8 kg
[~2020-09-22 08:05] MED LIST changes: +CYMBALTA60 MG PO; +FOLBEE PLUS TAB1 TAB PO; +LEXAPRO10 MG PO; +OXYBUTYNIN CHLOR5 MG PO; +TRAZODONE HCL50 MG PO
[2020-09-22 08:08] VITALS: BP 168/99; Ht 157.5 cm; Wt 81.8 kg
[2020-09-22 08:55] LABS: BASOPHILS 0.4 % (0-2); EOSINOPHILS 8.4 % (0-7); HEMATOCRIT 40.3 % (36.0-48.0); HEMOGLOBIN 12.8 g/dL (12-16); IMMATURE GRANULOCYTES 0.2 % (0-5); LYMPHOCYTES 28.5 % (15-50); MCH 30.6 pg (26.0-34.0); MCHC 31.8 g/dL (31.0-37.0); MCV 96.4 fL (80.0-100.0); MEAN PLATELET VOLUME 9.5 fL (7.4-10.4); MONOCYTES 6.1 % (2-11); NEUTROPHIL ABS# 2.97 10x3/uL (1.56-6.13); NEUTROPHILS 56.4 % (40-80); PLATELET COUNT 371 10x3/uL (130-400); RBC 4.18 10x6/uL (4.00-5.40); RDW 14.5 % (11.5-14.5); WBC 5.3 10x3/uL (4.8-10.8)
[2020-09-22 08:57] LABS: ANION GAP 9.2 mmol/L (8-16); CALCIUM 8.8 mg/dL (8.5-10.1); CARBON DIOXIDE 28.7 mmol/L (21.0-32.0); CREATININE - SERUM 0.9 mg/dL (0.6-1.3); POTASSIUM - SERUM 3.9 mmol/L (3.5-5.1)
[2020-09-22 09:03] LABS: ALBUMIN 3.6 g/dL (3.4-5.0); BILIRUBIN - TOTAL 0.13 mg/dL (0.2-1.3); PROTEIN - SERUM 7.4 g/dL (6.4-8.2)
[2020-09-22 09:06] LABS: BILIRUBIN NEGATIVE (NEGATIVE); KETONE NEGATIVE (NEGATIVE); NITRITE NEGATIVE (NEGATIVE); UROBILINOGEN NORMAL mg/dL (< 2)
[2020-09-22] MEDS ORDERED: BENTYL 20 MG TA20 MG PO (09:27)
== END 2020-09-22 09:46 | disposition home or self-care (01) ==
LOC: D.ER 08:05
PROVIDERS: Emergency Medicine
DX: K58.9 Irritable bowel syndrome, unspecified (principal); I10 Essential (primary) hypertension; K21.9 Gastro-esophageal reflux disease without esophagitis; R10.84 Generalized abdominal pain

== ENCOUNTER 2020-09-24 07:57 | Emergency (ER) | payer MEDICAID ==
[~2020-09-24] VITALS: Ht 157.5 cm; Wt 84.5 kg
[~2020-09-24 07:57] MED LIST changes: +BENTYL 20 MG TA20 MG PO
[2020-09-24 08:01] VITALS: BP 171/113; Ht 157.5 cm; Wt 84.5 kg
[2020-09-24 08:27] LABS: ANION GAP 10.2 mmol/L (8-16); CARBON DIOXIDE 27.7 mmol/L (21.0-32.0); CREATININE - SERUM 0.9 mg/dL (0.6-1.3); POTASSIUM - SERUM 3.9 mmol/L (3.5-5.1)
[2020-09-24 08:32] LABS: ALBUMIN 3.5 g/dL (3.4-5.0); BILIRUBIN - TOTAL 0.13 mg/dL (0.2-1.3); PROTEIN - SERUM 7.3 g/dL (6.4-8.2)
[2020-09-24 08:35] LABS: BASOPHILS 0.8 % (0-2); EOSINOPHILS 4.1 % (0-7); HEMATOCRIT 38.8 % (36.0-48.0); HEMOGLOBIN 12.5 g/dL (12-16); IMMATURE GRANULOCYTES 0.2 % (0-5); LYMPHOCYTE ABS# 1.58 10x3/uL (1.18-3.74); LYMPHOCYTES 24.2 % (15-50); MCH 30.6 pg (26.0-34.0); MCHC 32.2 g/dL (31.0-37.0); MCV 94.9 fL (80.0-100.0); MEAN PLATELET VOLUME 9.4 fL (7.4-10.4); NEUTROPHILS 65.7 % (40-80); PLATELET COUNT 367 10x3/uL (130-400); RBC 4.09 10x6/uL (4.00-5.40); RDW 14.3 % (11.5-14.5); WBC 6.5 10x3/uL (4.8-10.8)
== END 2020-09-24 08:28 | disposition left against medical advice (07) ==
LOC: D.ER 07:57
PROVIDERS: Family Medicine
DX: R10.9 Unspecified abdominal pain (principal); G89.29 Other chronic pain; F41.9 Anxiety disorder, unspecified; I10 Essential (primary) hypertension; K21.9 Gastro-esophageal reflux disease without esophagitis

== ENCOUNTER 2020-10-18 10:48 | Emergency (ER) | payer BC ==
[~2020-10-18] VITALS: Ht 157.5 cm; Wt 80.9 kg
[2020-10-18 10:51] VITALS: Ht 157.5 cm; Wt 80.9 kg
[2020-10-18 11:20] LABS: BASOPHILS 0.4 % (0-2); EOSINOPHILS 0.6 % (0-7); HEMATOCRIT 38.8 % (36.0-48.0); HEMOGLOBIN 12.9 g/dL (12-16); LYMPHOCYTES 49.7 % (15-50); MCH 30.9 pg (26.0-34.0); MCHC 33.2 g/dL (31.0-37.0); MCV 92.8 fL (80.0-100.0); MEAN PLATELET VOLUME 9.1 fL (7.4-10.4); NEUTROPHILS 43.3 % (40-80); PLATELET COUNT 405 10x3/uL (130-400); RBC 4.18 10x6/uL (4.00-5.40); RDW 14.5 % (11.5-14.5); WBC 4.6 10x3/uL (4.8-10.8)
[2020-10-18 11:36] LABS: BILIRUBIN NEGATIVE (NEGATIVE); KETONE NEGATIVE (NEGATIVE); NITRITE NEGATIVE (NEGATIVE); UROBILINOGEN NORMAL mg/dL (< 2)
[2020-10-18 11:42] LABS: CALC OSMOLALITY 276 mosm/kg (275-300); CALCIUM 9.7 mg/dL (8.5-10.1); CARBON DIOXIDE 23.3 mmol/L (21.0-32.0); CHLORIDE - SERUM 99 mmol/L (98-107); CREATININE - SERUM 1.5 mg/dL (0.6-1.3); GLUCOSE 137 mg/dL (74-106); POTASSIUM - SERUM 3.2 mmol/L (3.5-5.1); SODIUM 137 mmol/L (136-145); UREA NITROGEN 15 mg/dL (7-18); eGFR NON AFRICAN AMERICAN 38 mL/min (90-120)
[2020-10-18 11:44] LABS: UDS - AMPHET NEGATIVE QUAL (NEGATIVE); UDS - BARB NEGATIVE QUAL (NEGATIVE); UDS - BENZO POSITIVE QUAL (NEGATIVE); UDS - COCAINE NEGATIVE QUAL (NEGATIVE); UDS - OPIATE POSITIVE QUAL (NEGATIVE); UDS - PCP NEGATIVE QUAL (NEGATIVE); UDS - THC POSITIVE QUAL (NEGATIVE)
[2020-10-18 11:48] LABS: ALKALINE PHOSPHATASE 91 U/L (30-120); ALT (SGPT) 26 U/L (10-68); BILIRUBIN - TOTAL 0.38 mg/dL (0.2-1.3); MAGNESIUM - SERUM 1.7 mg/dL (1.8-2.4); PROTEIN - SERUM 7.9 g/dL (6.4-8.2)
[2020-10-18 11:51] LABS: ACETAMINOPHEN < 10.0 ug/mL (10.0-30.0)
[2020-10-18 12:40] VITALS: BP 152/64
== END 2020-10-18 12:40 | disposition home or self-care (01) ==
LOC: D.ER 10:48
PROVIDERS: Family Medicine
DX: F41.9 Anxiety disorder, unspecified (principal); F41.0 Panic disorder [episodic paroxysmal anxiety]; F12.90 Cannabis use, unspecified, uncomplicated; I10 Essential (primary) hypertension; K21.9 Gastro-esophageal reflux disease without esophagitis

== ENCOUNTER 2020-11-01 08:12 | Emergency (ER) | payer MEDICAID ==
[~2020-11-01] VITALS: Ht 157.5 cm; Wt 86.4 kg
[2020-11-01 08:15] VITALS: BP 182/105; Ht 157.5 cm; Wt 86.4 kg
[2020-11-01 08:34] LABS: BASOPHILS 1.1 % (0-2); EOSINOPHILS 1.9 % (0-7); HEMATOCRIT 36.5 % (36.0-48.0); HEMOGLOBIN 12.4 g/dL (12-16); LYMPHOCYTES 32.2 % (15-50); MCHC 34.1 g/dL (31.0-37.0); MCV 90.9 fL (80.0-100.0); MEAN PLATELET VOLUME 6.8 fL (7.4-10.4); MONOCYTES 6.6 % (2-11); NEUTROPHILS 58.2 % (40-80); PLATELET COUNT 395 10x3/uL (130-400); RBC 4.01 10x6/uL (4.00-5.40); RDW 14.7 % (11.5-14.5); WBC 5.3 10x3/uL (4.8-10.8)
[2020-11-01 08:45] LABS: APTT 24.9 SECONDS (22.8-39.4); INR 1.02 (0.85-1.17); PROTIME 12.3 SECONDS (11.6-15.0)
[2020-11-01 08:47] LABS: CALC OSMOLALITY 278 mosm/kg (275-300); CALCIUM 9.3 mg/dL (8.5-10.1); CARBON DIOXIDE 27.5 mmol/L (21.0-32.0); CHLORIDE - SERUM 103 mmol/L (98-107); GLUCOSE 109 mg/dL (74-106); POTASSIUM - SERUM 3.7 mmol/L (3.5-5.1); SODIUM 140 mmol/L (136-145); UREA NITROGEN 11 mg/dL (7-18); eGFR NON AFRICAN AMERICAN 61 mL/min (90-120)
[2020-11-01 09:01] LABS: ALBUMIN 3.7 g/dL (3.4-5.0); ALKALINE PHOSPHATASE 79 U/L (30-120); ALT (SGPT) 36 U/L (10-68); BILIRUBIN - TOTAL 0.16 mg/dL (0.2-1.3); CREATINE KINASE 183 UL (21-215); PRO BNP 255 pg/mL (0-125); PROTEIN - SERUM 7.5 g/dL (6.4-8.2)
[2020-11-01 09:02] LABS: TROPONIN-I < 0.017 ng/mL (0.000-0.060)
[2020-11-01] MEDS ORDERED: VISTARIL50 MG PO (10:33)
== END 2020-11-01 10:46 | disposition home or self-care (01) ==
LOC: D.ER 08:12
PROVIDERS: Family Medicine
DX: R06.02 Shortness of breath (principal); F41.9 Anxiety disorder, unspecified; R79.89 Other specified abnormal findings of blood chemistry; I10 Essential (primary) hypertension; K21.9 Gastro-esophageal reflux disease without esophagitis

== ENCOUNTER 2020-11-04 05:27 | Emergency (ER) | payer BC ==
[~2020-11-04] VITALS: Ht 157.5 cm; Wt 86.4 kg
[~2020-11-04 05:27] MED LIST changes: +VISTARIL50 MG PO
[2020-11-04 05:36] VITALS: Ht 157.5 cm; Wt 86.4 kg
[2020-11-04 07:04] LABS: CALC OSMOLALITY 281 mosm/kg (275-300); CALCIUM 9.8 mg/dL (8.5-10.1); CARBON DIOXIDE 26.5 mmol/L (21.0-32.0); CHLORIDE - SERUM 102 mmol/L (98-107); CREATININE - SERUM 1.3 mg/dL (0.6-1.3); GLUCOSE 93 mg/dL (74-106); POTASSIUM - SERUM 3.9 mmol/L (3.5-5.1); SODIUM 140 mmol/L (136-145); UREA NITROGEN 20 mg/dL (7-18); eGFR NON AFRICAN AMERICAN 45 mL/min (90-120)
[2020-11-04 07:19] LABS: ALBUMIN 3.9 g/dL (3.4-5.0); ALKALINE PHOSPHATASE 75 U/L (30-120); ALT (SGPT) 34 U/L (10-68); BILIRUBIN - TOTAL 0.29 mg/dL (0.2-1.3); C-REACTIVE PROTEIN 1.1 mg/dL (0.0-0.9); PRO BNP 39 pg/mL (0-125); PROTEIN - SERUM 8.1 g/dL (6.4-8.2); THYROID STIMULATING HORMONE 1.73 uIU/mL (0.36-3.74)
[2020-11-04 07:20] LABS: TROPONIN-I < 0.017 ng/mL (0.000-0.060)
[2020-11-04 07:26] LABS: BASOPHILS 0.9 % (0-2); EOSINOPHILS 1.4 % (0-7); HEMATOCRIT 39.2 % (36.0-48.0); HEMOGLOBIN 13.2 g/dL (12-16); LYMPHOCYTES 32.7 % (15-50); MCH 30.6 pg (26.0-34.0); MCHC 33.6 g/dL (31.0-37.0); MCV 91.2 fL (80.0-100.0); MEAN PLATELET VOLUME 7.2 fL (7.4-10.4); MONOCYTES 8.4 % (2-11); NEUTROPHILS 56.6 % (40-80); PLATELET COUNT 422 10x3/uL (130-400); RDW 14.9 % (11.5-14.5); WBC 4.8 10x3/uL (4.8-10.8)
[2020-11-04 08:27] VITALS: BP 136/101
== END 2020-11-04 08:14 | disposition home or self-care (01) ==
LOC: D.ER 05:27
PROVIDERS: Family Medicine
DX: F41.9 Anxiety disorder, unspecified (principal); R06.2 Wheezing

== ENCOUNTER 2020-11-24 13:25 | Emergency (ER) | payer BC ==
[~2020-11-24] VITALS: Ht 157.5 cm; Wt 86.4 kg
[2020-11-24 13:30] VITALS: BP 168/118; Ht 157.5 cm; Wt 86.4 kg
[2020-11-24] MEDS ORDERED: PHAZYME180 MG PO (18:30)
[2020-11-24] MEDS ORDERED: LISINOPRIL-HCT1 EAC8 PO (18:31)
== END 2020-11-24 19:00 | disposition home or self-care (01) ==
LOC: D.ER 13:25
DX: K63.89 Other specified diseases of intestine (principal); I10 Essential (primary) hypertension